=== PATIENT | female | born 1995 | race Two or more races ===

== ENCOUNTER 2017-10-25 12:59 | Observation (INO) | payer SELFPAY ==
[2017-10-25] MEDS ORDERED: ONDANSETRON HCL 4 MG/2 ML SOL IV ONE (13:14)
[2017-10-25] MEDS ORDERED: HYDROMORPHONE HCL 2 MG/ML SOL IV ONE (13:14)
[2017-10-25] MEDS ORDERED: HYDROMORPHONE HCL 2 MG/ML SOL ONE (13:16)
[2017-10-25] MEDS ORDERED: ONDANSETRON HCL 4 MG/2 ML SOL ONE (13:16)
[2017-10-25 13:26] LABS: BASOPHILS % (AUTO) 1 % (0-3); EOSINOPHILS % (AUTO) 2 % (0-9); HEMATOCRIT 41 % (35-47); MEAN CORPUSCULAR HGB CONC 35.3 gm/dl (32.0-36.0); MEAN CORPUSCULAR VOLUME 89 fL (81-99); MONOCYTES % (AUTO) 7.2 % (0-12); NEUTROPHILS % (AUTO) 67.5 % (37-80)
[2017-10-25 13:39] LABS: ALBUMIN 4.1 gm/dl (3.4-5.0); CALCIUM 8.9 mg/dl (8.5-10.1); POTASSIUM 3.4 mMol/L (3.5-5.1)
[2017-10-25] MEDS ORDERED: SODIUM CHLORIDE 0.9% 1000ML 1,000 ML IV ONE ×2 (15:20→17:00)
[2017-10-25] MEDS ORDERED: KETOROLAC TROMETHAMINE 30 MG/ML SOL IV ONE (15:20)
[2017-10-25] MEDS ORDERED: KETOROLAC TROMETHAMINE 30 MG/ML SOL ONE (15:24)
[2017-10-25] MEDS ORDERED: TAMSULOSIN HYDROCHLORIDE 0.4 MG CAP ONE (15:25)
[2017-10-25] MEDS ORDERED: MORPHINE SULFATE 10 MG/ML SOL IV PRN (17:16)
[2017-10-25] MEDS ORDERED: ONDANSETRON HCL 4 MG/2 ML SOL IV PRN (17:16)
[2017-10-25] MEDS ORDERED: KETOROLAC TROMETHAMINE 30 MG/ML SOL IV PRN (17:17)
[2017-10-25] MEDS: POTASSIUM CHLORIDE 10 MEQ TER PO SCH (20:10)
[2017-10-25] MEDS ORDERED: TAMSULOSIN HYDROCHLORIDE 0.4 MG CAP PO SCH (21:00)
[2017-10-26 00:53] VITALS: RESP 20; O2SAT 98
[2017-10-26 05:03] LABS: APPEARANCE,URINE Clear; BILIRUBIN,URINE NEGATIVE (NEGATIVE); COLOR,URINE Dark yellow; GLUCOSE, URINE (UA) NEGATIVE (NEGATIVE); KETONES,URINE 4+ (NEGATIVE); LEUKOCYTE ESTERASE ,URINE NEGATIVE (NEGATIVE); NITRATE,URINE NEGATIVE (NEGATIVE); OCCULT BLOOD,URINE 3+ (NEG-TRACE); PH,URINE 5.5; UROBILINOGEN,URINE 0.2 (0.2-1.0 EU)
[2017-10-26 05:10] LABS: RBC,URINE 20-30 (0-3AV/HPF)
[2017-10-26 08:08] VITALS: BP 96/64; PULSE 55; TEMP 98.2
[2017-10-26] MEDS: POTASSIUM CHLORIDE 10 MEQ TER PO SCH (08:18)
[2017-10-26] MEDS ORDERED: TAMSULOSIN HYDROCHLORIDE 0.4 MG CAP PO SCH (09:00)
[2017-10-26] MEDS ORDERED: INFLUENZA VIRUS VACCINE 0.5 ML SUS IM ONE (09:56)
[2017-10-26 10:03] LABS: CALCIUM 8.4 mg/dl (8.5-10.1); POTASSIUM 3.8 mMol/L (3.5-5.1)
== END 2017-10-26 11:20 | disposition home or self-care (01) | DRG 694 ==
LOC: ED 12:59 → ACUTE CARE 17:04 → UNDOADMOB 17:04 → ACUTE CARE 17:20
PROVIDERS: ADMIT Emergency Medicine; ATTEND Emergency Medicine
DX: N13.2 Hydronephrosis with renal and ureteral calculous obstruction (principal)
CPT/HCPCS: 36415; 74019; 74176; 80048; 80053; 81001; 84703; 85025; 90686; 99285; J1170; J1885; J2270; J2405; A9270-GY; G0008